=== PATIENT | male | born 1970 | race Caucasian/White ===

== ENCOUNTER 2024-11-24 23:01 | Emergency (ER) | payer OTHER, SELFPAY ==
[2024-11-24 23:09] VITALS: BP 119/84; PULSE 87; TEMP 36.8; O2SAT 95; BMI 28.6
--- NOTE | 2024-11-24 23:35 | ED_ITS ---
HPI HPI - Head Injury General Chief complaint: Head Injury Stated complaint: FALL Time Seen by Provider: 11/24/24 23:32 Source: patient Mode of arrival: walk-in History of Present Illness HPI Narrative: The patient is an otherwise healthy 54-year-old male who presents to the emergency department after head injury. At approximately 10:30 PM, the patient was getting up in preparation for work. He had a mechanical fall stubbing his toe causing him to fall into a dresser. indicates he had transient loss of consciousness for couple seconds because he was unresponsive to her. Patient does not take any blood thinners. Patient's not having any slurred speech or trouble comprehending. No blurry vision, double vision, loss of vision. No nausea or vomiting. No neck pain or stiffness. Patient does have a 4 out of 10 headache. He also sustained a small laceration to his left forehead. He denies any nasal injuries. There is no mouth or dental injuries. Touching makes it worse. Nothing makes it better. No radiation of the pain. Related Data Home Medications ?Medication ?Instructions ?Recorded ?Confirmed sulfamethoxazole 800 1 tab PO DAILY 11/24/24 11/24/24 mg-trimethoprim 160 mg tablet testosterone cypionate 200 mg/mL 150 mg IM .[id number] 11/24/24 11/24/24 intramuscular oil triamterene 37.5 1 cap PO DAILY 11/24/24 11/24/24 mg-hydrochlorothiazide 25 mg capsule Allergies Allergy/AdvReac Type Severity Reaction Status Date / Time No Known Drug Allergies Allergy Verified 11/24/24 23:14 Opioid HPI Opioid Management Most Recent Pain and Opioid Data: Last Pain Scale 3 11/24/24 23:56 11/24/24 Exam Constitutional Vital Signs, click to edit/add: Last Vital Signs Temp 98.2 F 11/24/24 23:09 Pulse 87 11/24/24 23:09 Resp 16 11/24/24 23:09 BP 119/84 11/24/24 23:09 Pulse Ox 95 11/24/24 23:09 O2 Del Method Room Air 11/24/24 23:09 Course Course Hospital Course: There was come concern whether or not the patient had a loss of consciousness. Therefore CT scan of the brain was performed. In addition, the patient had a laceration repair. Since it was partial-thickness and small and came together quite easily I felt it was most appropriate to use tissue adhesive. The laceration follows along lines of Gina hands although I expect a scar the skin should heal beautifully and not be apparent. Vital Signs Vital signs: Vital Signs Temperature 98.2 F 11/24/24 23:09 Pulse Rate 87 11/24/24 23:09 Respiratory Rate 16 11/24/24 23:09 Blood Pressure 119/84 11/24/24 23:09 Pulse Oximetry 95 11/24/24 23:09 Oxygen Delivery Method Room Air 11/24/24 23:09 Temperature 98.2 F 11/24/24 23:09 Pulse Rate 87 11/24/24 23:09 Respiratory Rate 16 11/24/24 23:09 Blood Pressure 119/84 11/24/24 23:09 Pulse Oximetry 95 11/24/24 23:09 Oxygen Delivery Method Room Air 11/24/24 23:09 MDM - Head Injury MDM Narrative Medical decision making narrative: Patient is a 54-year-old male who had a mechanical fall an hour prior to arrival. Hit his left forehead and potentially had a loss of consciousness. Differential Diagnosis Differential diagnosis: Likely concussion without loss of consciousness, epidural hematoma, closed head injury, subarachnoid hematoma, postconcussion syndrome, subdural hematoma and concussion with loss of consciousness Medical Records Attestation: I reviewed the patient's medical records. Imaging Data CT scan - head: Attestation: I have reviewed the pertinent imaging results. Radiologist's impression: No acute intracranial process. Discharge Plan Discharge Stand Alone Forms: Work/School Release Chief Complaint: Head Injury Clinical Impression: Closed head injury, Facial laceration Patient Disposition: Home, Self-Care Time of Disposition Decision: 00:01 Condition: Good Mode of Transportation: Private Vehicle Prescriptions / Home Meds: No Action triamterene-hydrochlorothiazid 37.5-25 mg capsule 1 cap PO DAILY sulfamethoxazole-trimethoprim 800-160 mg tablet 1 tab PO DAILY testosterone cypionate 200 mg/mL oil 150 mg IM .[id number] Print Language: Slovenian Instructions: Head Injury (ED), Skin Adhesive Care (ED) Referrals: CHAVA MUNIZ [Primary Care Provider] - 1 week Discharge Date/Time: 11/25/24 00:20 Procedures ED Laceration Laceration Laceration 1: Site: face Side (if applicable): left Size (cm): 1 Description: linear Depth: simple, single layer Pre-repair: wound explored, irrigated extensively and deep structures intact Skin layer closed with: other (tissue adhesive)
--- NOTE | 2024-11-25 00:07 | PC.NURSE ---
wound closed with glue by physician
== END 2024-11-25 00:20 | disposition home or self-care (01) ==
PROVIDERS: Emergency Provider Emergency Medicine; PCP Family Medicine
DX: S09.8XXA Other specified injuries of head, initial encounter (principal); S01.81XA Laceration without foreign body of other part of head, initial encounter; W18.39XA Other fall on same level, initial encounter
CPT/HCPCS: 12011; 70450; 99284